=== PATIENT | male | born 1965 | race Two or more races ===

== ENCOUNTER 2017-07-27 09:42 | Day surgery (SDC) | payer BC ==
[2017-07-27] MEDS ORDERED: MIDAZOLAM 1 MG/ML 2 ML INJ ×3 (10:29→11:14)
[2017-07-27] MEDS ORDERED: PROPOFOL 20 ML (10:29)
[2017-07-27] MEDS ORDERED: FENTAnyl 50 MCG/ML VIAL ×3 (10:29→11:18)
== END 2017-07-27 11:49 | disposition home or self-care (01) ==
LOC: GIL 09:42
DX: K29.50 Unspecified chronic gastritis without bleeding (principal)
CPT/HCPCS: 43239; 88305; 88312